=== PATIENT | female | born 1950 | race Caucasian/White ===

== ENCOUNTER 2017-06-29 10:33 | Inpatient (IN) | payer OTHER ==
[2017-06-29] VITALS (7 sets, daily range): BP systolic 117–145; BP diastolic 58–76
[~2017-06-29] VITALS: Ht 162.6 cm; Wt 86.0 kg
[2017-06-29] MEDS ORDERED: SODIUM CHLORIDE 0.9% 1,000 ML IVB ONE (11:06)
[2017-06-29 12:11] LABS: Basophils # (auto) 0 uL; Basophils % (auto) 0.5 % (0.0-2.0); CONDITION Y; Eosinophils # (auto) 0 uL; Eosinophils % (auto) 0.4 % (0.0-7.0); Hematocrit 43.4 % (36.0-46.0); Hemoglobin 14.9 g/dL (12.2-16.2); Lymphocytes # (auto) 1.6 uL; Mean Corpuscular Hgb Conc. 34.3 g/dL (32.0-36.0); Mean Corpuscular Volume 90.6 fL (80.0-100.0); Mean Platelet Volume 8.6 fL (7.4-10.4); Monocytes # (auto) 0.3 uL; Monocytes % (auto) 3.7 % (0.0-12.0); Neutrophils # (auto) 6.9 uL; Neutrophils % (auto) 77.4 % (37.0-80.0); Platelet Count (auto) 340 10^3/uL (140-450); Red Cell Distribution Width 13.9 % (11.6-16.0); White Blood Cell 8.9 10^3/uL (4.4-10.8)
[2017-06-29 12:26] LABS: INR 0.9 (0.9-1.15); Partial Thromboplastin Time 27.1 sec (22.64-33.71); Prothrombin Time 9.8 sec (9.37-12.3)
[2017-06-29 12:27] LABS: Urine Bilirubin Negative (Negative); Urine Blood TRACE /uL (Negative); Urine Color Yellow (Yellow); Urine Glucose 4+ mg/dL (Normal); Urine Ketone TRACE (Negative); Urine Nitrite POSITIVE (Negative); Urine RBC 2 /hpf (0 - 4); Urine Squamous Epithelial Cell FEW /hpf (<5); Urine Urobilinogen Normal (Negative); Urine WBC Clumps PRESENT /hpf (None Seen); Urine pH 5.5 (5.0-8.0)
[2017-06-29 12:40] LABS: Albumin 2.8 g/dL (3.4-5.0); Alkaline Phosphatase 132 U/L (45-117); Anion Gap 9 (5-15); Aspartate Aminotransferase 12 U/L (15-37); BUN/Creatinine Ratio 18.9; Bilirubin, Total 0.4 mg/dL (0.2-1.0); Blood Urea Nitrogen 17 mg/dL (7-18); Calcium 8.4 mg/dL (8.5-10.1); Carbon Dioxide 24 mmol/L (21-32); Chloride 103 mmol/L (98-107); GFR African American 81 mL/min; GFR Non-African American 67 mL/min; Glucose 332 mg/dL (74-106); Magnesium 2.1 mg/dL (1.6-2.6); Potassium 4.4 mmol/L (3.5-5.1); Sodium 136 mmol/L (136-145); Total Protein 7.8 g/dL (6.4-8.2)
[2017-06-29] MEDS ORDERED: cefTRIAXone 1GM/50ML D5W 50 ML IV ONE (13:30)
[2017-06-29] MEDS ORDERED: DEXTROSE (50%) 50ML SYRG IV PRN (16:15)
[2017-06-29] MEDS ORDERED: MORPHINE SULF INJ 2 MG/ML SYRINGE 1ML IV PRN ×2 (16:15)
[2017-06-29] MEDS ORDERED: ONDANSETRON HCL 4 MG/2 ML VIAL IV PRN (16:15)
[2017-06-29] MEDS ORDERED: TEMAZEPAM 15 MG CAP PO PRN (16:15)
[2017-06-29] MEDS ORDERED: NITROGLYCERIN 0.4 MG SL TAB SL PRN (16:15)
[2017-06-29] MEDS ORDERED: ZINC SULFATE 220 MG CAP PO ONE (16:30)
[2017-06-29] MEDS ORDERED: MULTIPLE VITAMIN TAB PO ONE (16:30)
[2017-06-29] MEDS: ACCU-CHEK COMFORT CURVE STRIP VI SCH ×2 (17:14→22:16)
[2017-06-29] MEDS: INSULIN 70/30 1unit/0.01ml Susp (100units/ml) SC SCH (17:14)
[2017-06-29] MEDS: InsuLIN REG 1unit/0.01ml Soln (100units/ml) SC SCH ×2 (17:14→22:16)
[2017-06-29] MEDS ORDERED: TRAM50TA2 PO (19:18)
[2017-06-29] MEDS ORDERED: MULTTAB99 GT (19:18)
[2017-06-29] MEDS ORDERED: INS7030I SC (19:19)
[2017-06-29] MEDS: traMADol HCL 50 MG TAB PO PRN (22:15)
[2017-06-29] MEDS: ASCORBIC ACID 500 MG TAB PO SCH (22:15)
[2017-06-29] MEDS: FAMOTIDINE 20 MG TAB PO SCH (22:15)
[2017-06-29] MEDS: SODIUM CHLOR 0.9% PF (SALINE LOCK) 10ML VIAL IV SCH (22:16)
[2017-06-30] VITALS (19 sets, daily range): BP systolic 95–155; BP diastolic 38–84
[2017-06-30 03:54] LABS: Basophils # (auto) 0.1 uL; Basophils % (auto) 0.6 % (0.0-2.0); CONDITION Y; Eosinophils # (auto) 0.1 uL; Eosinophils % (auto) 1.5 % (0.0-7.0); Hematocrit 41.5 % (36.0-46.0); Lymphocytes % (auto) 31.7 % (10.0-50.0); Mean Corpuscular Hemoglobin 30.9 pg (28.0-32.0); Mean Corpuscular Hgb Conc. 33.7 g/dL (32.0-36.0); Mean Corpuscular Volume 91.8 fL (80.0-100.0); Mean Platelet Volume 8.7 fL (7.4-10.4); Monocytes # (auto) 0.7 uL; Monocytes % (auto) 7.4 % (0.0-12.0); Neutrophils # (auto) 5.6 uL; Neutrophils % (auto) 58.8 % (37.0-80.0); Platelet Count (auto) 346 10^3/uL (140-450); White Blood Cell 9.5 10^3/uL (4.4-10.8)
[2017-06-30 04:12] LABS: Albumin 2.7 g/dL (3.4-5.0); BUN/Creatinine Ratio 17.9; Calcium 8.2 mg/dL (8.5-10.1)
[2017-06-30 04:14] LABS: Bilirubin, Total 0.3 mg/dL (0.2-1.0); Total Protein 7.2 g/dL (6.4-8.2)
[2017-06-30] MEDS: SODIUM CHLOR 0.9% PF (SALINE LOCK) 10ML VIAL IV SCH ×2 (06:28→13:09)
[2017-06-30] MEDS: ACCU-CHEK COMFORT CURVE STRIP VI SCH ×4 (06:41→20:47)
[2017-06-30] MEDS: InsuLIN REG 1unit/0.01ml Soln (100units/ml) SC SCH ×4 (06:41→20:47)
[2017-06-30] MEDS: INSULIN 70/30 1unit/0.01ml Susp (100units/ml) SC SCH ×2 (08:00→11:51)
[2017-06-30] MEDS: cefTRIAXone 1GM/50ML D5W 50 ML IV SCH (09:06)
[2017-06-30] MEDS: ACETAMINOPHEN 325 MG TAB PO PRN ×2 (09:39→20:46)
[2017-06-30] MEDS: FAMOTIDINE 20 MG TAB PO SCH ×2 (09:40→20:47)
[2017-06-30] MEDS: ZINC SULFATE 220 MG CAP PO SCH (09:40)
[2017-06-30] MEDS: MULTIPLE VITAMIN TAB PO SCH (09:40)
[2017-06-30] MEDS: ASCORBIC ACID 500 MG TAB PO SCH ×2 (09:41→20:47)
[2017-06-30] MEDS: SOD CHL 0.45% 1,000 ML IV SCH ×2 (13:14→23:12)
[2017-06-30] MEDS: ENOXAPARIN SOD 40 MG/0.4 ML SYRINGE SC SCH (13:21)
[2017-06-30] MEDS: ASPirin-EC 81 mg tab PO SCH (13:21)
[2017-06-30] MEDS: DOCUSATE SOD 100 MG CAP PO PRN (16:10)
[2017-06-30 16:29] LABS: Cholesterol 168 mg/dL (< 200); HDL Cholesterol 32 mg/dL (40-59); LDL Cholesterol 111 mg/dL (< 100); Triglycerides 169 mg/dL (< 150)
[2017-06-30] MEDS ORDERED: ATORVASTATIN 20 MG TAB PO SCH (22:00)
[2017-06-30] MEDS ORDERED: MUPIROCIN 2% OINT 22GM TOP ONE (23:00)
[2017-07-01] MEDS: traMADol HCL 50 MG TAB PO PRN ×3 (03:36→23:00)
[2017-07-01 05:38] VITALS: BP 145/62
[2017-07-01 06:20] LABS: Basophils # (auto) 0 uL; Basophils % (auto) 0.6 % (0.0-2.0); CONDITION Y; Eosinophils # (auto) 0.2 uL; Eosinophils % (auto) 1.7 % (0.0-7.0); Hematocrit 41.6 % (36.0-46.0); Hemoglobin 14.1 g/dL (12.2-16.2); Mean Corpuscular Hemoglobin 31.2 pg (28.0-32.0); Mean Corpuscular Hgb Conc. 33.9 g/dL (32.0-36.0); Mean Corpuscular Volume 92.1 fL (80.0-100.0); Mean Platelet Volume 8.7 fL (7.4-10.4); Monocytes # (auto) 0.5 uL; Monocytes % (auto) 5.5 % (0.0-12.0); Neutrophils # (auto) 5.1 uL; Neutrophils % (auto) 58.2 % (37.0-80.0); Platelet Count (auto) 346 10^3/uL (140-450); Red Cell Distribution Width 13.6 % (11.6-16.0); White Blood Cell 8.8 10^3/uL (4.4-10.8)
[2017-07-01] MEDS: InsuLIN REG 1unit/0.01ml Soln (100units/ml) SC SCH ×4 (06:26→22:00)
[2017-07-01] MEDS: ACCU-CHEK COMFORT CURVE STRIP VI SCH ×4 (06:26→22:00)
[2017-07-01 06:42] LABS: Anion Gap 7 (5-15); Carbon Dioxide 26 mmol/L (21-32); Chloride 108 mmol/L (98-107); Glucose 164 mg/dL (74-106); Sodium 141 mmol/L (136-145)
[2017-07-01 06:43] LABS: BUN/Creatinine Ratio 15.5; Blood Urea Nitrogen 13 mg/dL (7-18); Calcium 8.4 mg/dL (8.5-10.1); GFR African American 87 mL/min; GFR Non-African American 72 mL/min; Magnesium 2.3 mg/dL (1.6-2.6)
[2017-07-01] MEDS ORDERED: hydrALAZINE HCL 25 MG TAB PO PRN (07:45)
[2017-07-01 08:29] VITALS: BP 113/56
[2017-07-01] MEDS: cefTRIAXone 1GM/50ML D5W 50 ML IV SCH (09:00)
[2017-07-01] MEDS: FAMOTIDINE 20 MG TAB PO SCH ×2 (09:36→23:00)
[2017-07-01] MEDS: INSULIN 70/30 1unit/0.01ml Susp (100units/ml) SC SCH ×2 (09:36→18:38)
[2017-07-01] MEDS: ENOXAPARIN SOD 40 MG/0.4 ML SYRINGE SC SCH (09:36)
[2017-07-01] MEDS: ASCORBIC ACID 500 MG TAB PO SCH ×2 (09:36→23:01)
[2017-07-01] MEDS: MULTIPLE VITAMIN TAB PO SCH (09:36)
[2017-07-01] MEDS: ASPirin-EC 81 mg tab PO SCH (09:36)
[2017-07-01] MEDS: ZINC SULFATE 220 MG CAP PO SCH (09:36)
[2017-07-01] MEDS: SOD CHL 0.45% 1,000 ML IV SCH ×2 (09:37→21:21)
[2017-07-01] MEDS ORDERED: MUPIROCIN 2% OINT 22GM EACHNOSTRI SCH (10:00)
[2017-07-01] MEDS ORDERED: NITROFURANTOIN (MONO) 100 mg CAP PO ONE (12:30)
[2017-07-01] MEDS: MUPIROCIN 2% OINT 22GM EACHNOSTRI SCH ×2 (12:41→22:00)
[2017-07-01] MEDS: DOCUSATE SOD 100 MG CAP PO PRN ×2 (12:58→23:00)
[2017-07-01 13:00] VITALS: BP 112/49
[2017-07-01 17:00] VITALS: BP 132/69
[2017-07-01 21:38] VITALS: BP 133/63
[2017-07-01] MEDS ORDERED: NITROFURANTOIN (MONO) 100 mg CAP PO SCH (22:00)
[2017-07-01] MEDS: PIPERACILLIN-TAZO 4.5GM 100 ML IV SCH (23:00)
[2017-07-01] MEDS: ATORVASTATIN 20 MG TAB PO SCH (23:00)
[2017-07-02 05:00] VITALS: BP 120/60
[2017-07-02] MEDS: PIPERACILLIN-TAZO 4.5GM 100 ML IV SCH (06:34)
[2017-07-02] MEDS: ACCU-CHEK COMFORT CURVE STRIP VI SCH ×4 (07:00→22:13)
[2017-07-02] MEDS: InsuLIN REG 1unit/0.01ml Soln (100units/ml) SC SCH ×4 (07:00→22:13)
[2017-07-02] MEDS: INSULIN 70/30 1unit/0.01ml Susp (100units/ml) SC SCH ×2 (07:47→19:25)
[2017-07-02] MEDS: ACETAMINOPHEN 325 MG TAB PO PRN (07:54)
[2017-07-02] MEDS: SOD CHL 0.45% 1,000 ML IV SCH ×2 (08:28→22:15)
[2017-07-02 09:00] VITALS: BP 143/86
[2017-07-02] MEDS: ENOXAPARIN SOD 40 MG/0.4 ML SYRINGE SC SCH (10:22)
[2017-07-02] MEDS: FAMOTIDINE 20 MG TAB PO SCH ×2 (10:22→22:13)
[2017-07-02] MEDS: ASPirin-EC 81 mg tab PO SCH (10:22)
[2017-07-02] MEDS: DOCUSATE SOD 100 MG CAP PO PRN (10:22)
[2017-07-02] MEDS: MULTIPLE VITAMIN TAB PO SCH (10:22)
[2017-07-02] MEDS: ZINC SULFATE 220 MG CAP PO SCH (10:22)
[2017-07-02] MEDS: ASCORBIC ACID 500 MG TAB PO SCH ×2 (10:22→22:13)
[2017-07-02] MEDS: MUPIROCIN 2% OINT 22GM EACHNOSTRI SCH ×2 (10:23→22:14)
[2017-07-02 13:05] VITALS: BP 132/70
[2017-07-02] MEDS ORDERED: ERTAPENEM SOD INJ 1 GM in SODIUM CHL 0.9% 50 ML IV ONE (14:15)
[2017-07-02 17:00] VITALS: BP 132/72
[2017-07-02 20:00] VITALS: BP 133/58
[2017-07-02 21:07] VITALS: BP 133/58
[2017-07-02] MEDS: ATORVASTATIN 20 MG TAB PO SCH (22:13)
[2017-07-03 05:24] VITALS: BP 144/63
[2017-07-03] MEDS: traMADol HCL 50 MG TAB PO PRN (06:18)
[2017-07-03] MEDS: InsuLIN REG 1unit/0.01ml Soln (100units/ml) SC SCH ×3 (07:00→17:00)
[2017-07-03] MEDS: ACCU-CHEK COMFORT CURVE STRIP VI SCH ×3 (07:00→17:00)
[2017-07-03 08:00] VITALS: BP 136/42
[2017-07-03] MEDS: ASPirin-EC 81 mg tab PO SCH (09:26)
[2017-07-03] MEDS: DOCUSATE SOD 100 MG CAP PO PRN (09:26)
[2017-07-03] MEDS: ASCORBIC ACID 500 MG TAB PO SCH (09:26)
[2017-07-03] MEDS: ZINC SULFATE 220 MG CAP PO SCH (09:26)
[2017-07-03] MEDS: MULTIPLE VITAMIN TAB PO SCH (09:26)
[2017-07-03] MEDS: FAMOTIDINE 20 MG TAB PO SCH (09:26)
[2017-07-03] MEDS: SOD CHL 0.45% 1,000 ML IV SCH (09:27)
[2017-07-03] MEDS: ENOXAPARIN SOD 40 MG/0.4 ML SYRINGE SC SCH (09:27)
[2017-07-03] MEDS: MUPIROCIN 2% OINT 22GM EACHNOSTRI SCH (09:27)
[2017-07-03] MEDS: INSULIN 70/30 1unit/0.01ml Susp (100units/ml) SC SCH (09:29)
[2017-07-03 09:37] VITALS: BP 136/42
[2017-07-03] MEDS ORDERED: ERTAPENEM SOD INJ 1 GM in SODIUM CHL 0.9% 50 ML IV SCH (10:00)
[2017-07-03 11:50] VITALS: BP 130/48
[2017-07-03] MEDS ORDERED: LIDOCAINE 1% HCL (LOCAL ANESTH.) INJ 20ML MDV ID ONE (16:15)
[2017-07-03 16:26] VITALS: BP 149/61
[2017-07-03 16:39] VITALS: BP 130/48
[2017-07-03] MEDS ORDERED: SODIUM CHLOR 0.9% PF (SALINE LOCK) 10ML VIAL IV SCH (22:00)
== END 2017-07-03 17:17 | DRG 65 ==
LOC: EDBD 10:33 → ER 10:33 → TELE 10:34 → ICU WEST 17:42 → TELE-WESTW 06-30 17:11 → WEST WING 06-30 17:11 → TELE-WESTW 06-30 23:30
PROVIDERS: ADMIT Internal Medicine; ATTEND Family Medicine
PROC: 02HV33Z Insertion of Infusion Device into Superior Vena Cava, Percutaneous Approach (ICD-10-PCS; principal; 2017-07-03)
DX: I63.9 Cerebral infarction, unspecified (principal); E44.0 Moderate protein-calorie malnutrition; N39.0 Urinary tract infection, site not specified; S09.90XA Unspecified injury of head, initial encounter; I25.10 Atherosclerotic heart disease of native coronary artery without angina pectoris; Z95.1 Presence of aortocoronary bypass graft; E10.21 Type 1 diabetes mellitus with diabetic nephropathy; G89.29 Other chronic pain; N18.2 Chronic kidney disease, stage 2 (mild); E83.51 Hypocalcemia; M54.16 Radiculopathy, lumbar region; I12.9 Hypertensive chronic kidney disease with stage 1 through stage 4 chronic kidney disease, or unspecified chronic kidney disease; E10.22 Type 1 diabetes mellitus with diabetic chronic kidney disease; Z16.12 Extended spectrum beta lactamase (ESBL) resistance; B96.20 Unspecified Escherichia coli [E. coli] as the cause of diseases classified elsewhere; G47.00 Insomnia, unspecified; E10.65 Type 1 diabetes mellitus with hyperglycemia; W01.0XXA Fall on same level from slipping, tripping and stumbling without subsequent striking against object, initial encounter; E66.9 Obesity, unspecified; K59.00 Constipation, unspecified; Z22.322 Carrier or suspected carrier of Methicillin resistant Staphylococcus aureus; Z79.82 Long term (current) use of aspirin; Z79.899 Other long term (current) drug therapy; Z80.1 Family history of malignant neoplasm of trachea, bronchus and lung; Z82.0 Family history of epilepsy and other diseases of the nervous system; Z82.49 Family history of ischemic heart disease and other diseases of the circulatory system; Z83.3 Family history of diabetes mellitus; Z68.32 Body mass index [BMI] 32.0-32.9, adult; Z90.49 Acquired absence of other specified parts of digestive tract; Y93.89 Activity, other specified; Y92.89 Other specified places as the place of occurrence of the external cause; Y99.8 Other external cause status
CPT/HCPCS: 36415; 51702; 70450; 70551; 71010; 72192; 73030; 80048; 80053; 80061; 81001; 82607; 82962; 83036; 83735; 84443; 84484; 85025; 85610; 85730; 87081; 87086; 87088; 87186; 93005; 93306; 93886; 94761; 95819; 96361; 96365; 97116; 97163; J0696; J1335; J1815; J2405; J2543